=== PATIENT | female | born 1995 | race African-American/Black ===

== ENCOUNTER 2018-01-01 06:11 | Inpatient (IN) ==
[2018-01-01] MEDS ORDERED: D5 1/2 NS 1000 ML 1,000 ML IV ONE (06:36)
[2018-01-01] MEDS ORDERED: D5LR 1L W PITOCIN 10 UNITS/L 10 UNITS/1,000 ML BAG IV PRN (06:44)
[2018-01-01] MEDS ORDERED: NUBAIN INJ 200 MG VIAL MULTIDOSE IVP PRN (06:44)
[2018-01-01] MEDS ORDERED: AMPICILLIN VIAL 2 GRAM 2 G in NS 100 ML IV + SPIKE MINIBAG* 100 ML IV SCH (06:44)
[2018-01-01] MEDS ORDERED: REGLAN INJ 10 MG VIAL IVP PRN ×2 (06:44→18:03)
[2018-01-01] MEDS ORDERED: PHENERGAN INJ 25 MG IV PRN (06:44)
[2018-01-01] MEDS ORDERED: PITOCIN IVP ONE (06:44)
[2018-01-01] MEDS ORDERED: D5 1/2 NS 1000 ML 1,000 ML IV SCH (06:44)
[2018-01-01] MEDS ORDERED: MORPHINE SULFATE INJ 2 MG INJ IVP PRN (06:44)
--- NOTE | 2018-01-01 07:13 | DR.OB ---
OB Quick Note - Assessment/Plan Assessment/Plan: L&D 01/01/18 at 6:46am S-No complaint. O-Afebrile,VSS UPO=[id number] with good LTV, +accel, no decel. CTX=occasional, mild CVX=1-2cm/50%/-1/VTX AROM with clear fluid. IUPC and FSE placed. A-IUP at 38 6/7 weeks for induction A1DM Abn. Quad Screen Rh- asthma GERD anemia Morbid Obesity P-Begin pitocin induction F/U labs Anticipate
[2018-01-01 07:22] LABS: BASOPHILS # (AUTO) 0.1 X10^3/uL (0.0-0.1); BASOPHILS % (AUTO) 0.6 % (0.2-1.0); EOSINOPHILS # (AUTO) 0.2 x10^3/uL (0.0-0.2); EOSINOPHILS % (AUTO) 1.5 % (0.9-2.9); HEMATOCRIT 33.6 % (36.0-47.0); LYMPHOCYTES # (AUTO) 2.9 X10^3/uL (1.3-2.9); LYMPHOCYTES % (AUTO) 25.2 % (21.0-51.0); MEAN CORPUSCULAR HEMOGLOBIN 24.7 pg (27.0-34.0); MEAN CORPUSCULAR HGB CONC 32.6 g/dL (33.0-35.0); MEAN CORPUSCULAR VOLUME 75.6 fL (80.0-100.0); MEAN PLATELET VOLUME 9.3 fL (7.4-11.0); MONOCYTES # (AUTO) 0.8 x10^3/uL (0.3-0.8); MONOCYTES % (AUTO) 6.5 % (0.0-13.0); NEUTROPHILS # (AUTO) 7.6 x10^3/uL (2.2-4.8); NEUTROPHILS % (AUTO) 66.2 % (42.0-75.0); PLATELET COUNT 343 X10^3/uL (150.0-450.0); RED BLOOD COUNT 4.44 X10^6/uL (3.5-5.4); RED CELL DISTRIBUTION WIDTH 16.6 % (11.6-16.5); WHITE BLOOD COUNT 11.6 X10^3/uL (3.6-10.0)
[2018-01-01] MEDS ORDERED: PITOCIN ONE (07:22)
[2018-01-01] MEDS ORDERED: D5LR 1L W PITOCIN 10 UNITS/L 10 UNITS/1,000 ML BAG IV ONE (07:22)
[2018-01-01] MEDS ORDERED: LR 1000 ML IV 1,000 ML IV ONE ×3 (07:22→10:08)
[2018-01-01] MEDS ORDERED: D5 1/2 NS 1L W PITOCIN 20 UNITS/L 20 UNITS/1,000 ML BAG IV ONE (07:23)
[2018-01-01 07:24] LABS: BLOOD UREA NITROGEN 4 mg/dL (7-18); CALCIUM 9.1 mg/dL (8.5-10.1); CARBON DIOXIDE 20.7 mmol/L (21-32); CHLORIDE 102 mmol/L (98-107); COR NA(FOR HYPERGLY) 135 mmol/L (136-145); CREATININE 0.97 mg/dL (0.55-1.02); SODIUM 134 mmol/L (136-145); eGFR NON BLACK RACES > 60 (>60)
[2018-01-01 07:25] LABS: BILIRUBIN,URINE NEGATIVE (NEGATIVE); BLOOD/HEMOGLOBIN,URINE NEGATIVE (NEGATIVE); GLUCOSE, URINE NEGATIVE (NEGATIVE); KETONES,URINE NEGATIVE (NEGATIVE); LEUKOCYTE ESTERASE ,URINE 1+ (NEGATIVE); NITRITES,URINE NEGATIVE (NEGATIVE); PH,URINE 6.5 (5.0 - 8.0); PROTEIN,URINE 1+ (NEGATIVE); UROBILINOGEN,URINE NORMAL (NORMAL)
[2018-01-01 07:27] LABS: APPEARANCE,URINE CLEAR (CLEAR); COLOR,URINE YELLOW (YELLOW)
[2018-01-01 07:35] LABS: HYPOCHROMASIA SLIGHT; PLATELET MORPHOLOGY COMMENT NORMAL (NORMAL)
[2018-01-01 07:42] LABS: BACTERIA,URINE TRACE /HPF (NEGATIVE); MUCUS,URINE FEW /HPF (NEGATIVE); RBC,URINE 0-2 /HPF (NONE SEEN); SQUAMOUS EPITHELIAL CELL,UR RARE /HPF (NEGATIVE)
[2018-01-01 07:43] LABS: SPERM,URINE RARE /HPF (NEGATIVE)
[2018-01-01] MEDS ORDERED: FENTANYL INJ 100 mcg ONE (09:10)
[2018-01-01] MEDS ORDERED: ADRENALINE CHL INJ ONE (09:10)
[2018-01-01] MEDS ORDERED: NAROPIN EPIDURAL 0.2% + FENTANYL 90MCG 60 ML EPI ONE ×2 (09:10→13:54)
[2018-01-01] MEDS ORDERED: XYLOCAINE 1 % (PLAIN) ONE (09:10)
[2018-01-01] MEDS: NAROPIN EPIDURAL 0.2% 60 ML with FENTANYL INJ 100 mcg 90 MCG IVP SCH ×4 (09:40→14:18)
[2018-01-01] MEDS ORDERED: FENTANYL INJ 100 mcg EPI ONE (10:08)
[2018-01-01] MEDS ORDERED: AMPICILLIN VIAL 1 GRAM 1 G in NS 50 ML IV + SPIKE MINIBAG* 50 ML IV SCH (11:00)
[2018-01-01] MEDS ORDERED: VERSED ONE (11:14)
[2018-01-01] MEDS ORDERED: EPHEDRINE SULFATE INJ ONE (11:14)
--- NOTE | 2018-01-01 13:24 | DR.OB ---
OB Quick Note - Assessment/Plan Assessment/Plan: L&D 01/01/18 at 1:15pm Pitocin=20mu/min. S-No complaint. s/p epidural. O-Afebrile,VSS LZO=[id number] with good LTV, +accel, no decel. CTX=q 1 1/2 to 3 min., about 35-55mmHg CVX=3cm/75%/-1/VTX A-IUP at 38 4/7 weeks for induction A1DM Abnormal quad screen Rh- asthma GERD anemia morbid obesity P-Cont. pitocin induction Anticipate
[2018-01-01] MEDS ORDERED: ANCEF 1 GRAM IV PREMIX* 1 G/50 ML BAG IV ONE ×2 (15:39→16:31)
[2018-01-01] MEDS ORDERED: XYLOCAINE 2% and EPINEPHRINE 1:100,000 ONE (16:03)
--- NOTE | 2018-01-01 16:18 | DR.OB ---
OB Quick Note - Assessment/Plan Assessment/Plan: L&D 01/01/18 at 4:10pm Pitocin=20mu/min. S-No complaint. O-Afebrile,VSS FMI=758 with good LTV, +accel, no decel. CTX=q 1 1/2 to 3 min., about 35-55mmHg CVX=3cm/75%/-1 A-IUP at 38 4/7 weeks with failure to dilate (no CVX change in 4 hours). A1DM abn. quad screen Rh- asthma GERD anemia morbid obesity P-To C/S
[2018-01-01] MEDS ORDERED: DURAMORPH ONE (16:34)
[2018-01-01] MEDS: D5 1/2 NS 1L W PITOCIN 20 UNITS/L 20 UNITS/1,000 ML BAG IV ONE ×2 (16:55→17:41)
[2018-01-01] MEDS ORDERED: XYLOCAINE 2% and EPINEPHRINE 1:100,000 IJ SCH (18:00)
[2018-01-01] MEDS ORDERED: DURAMORPH EPI SCH (18:00)
[2018-01-01] MEDS ORDERED: ZOFRAN INJ 4 MG VIAL IVP PRN ×2 (18:03→18:18)
[2018-01-01] MEDS ORDERED: PHENERGAN INJ 25 MG IVP PRN (18:03)
[2018-01-01] MEDS ORDERED: BENADRYL INJ 50 MG VIAL IVP PRN ×2 (18:03→18:18)
[2018-01-01] MEDS ORDERED: DILAUDID INJ IVP PRN (18:03)
[2018-01-01] MEDS ORDERED: DILAUDID INJ ONE (18:15)
[2018-01-01] MEDS ORDERED: NARCAN INJ IVP PRN (18:18)
[2018-01-01] MEDS ORDERED: PERCOCET TAB 5/325 MG PO PRN (18:18)
[2018-01-01] MEDS ORDERED: HYPERRHO S/D (or RHOGAM) IM PRN (18:18)
[2018-01-01] MEDS ORDERED: MYLICON TAB 80 MG CHEW PO PRN (18:18)
[2018-01-01] MEDS ORDERED: D5 1/2 NS 1000 ML 1,000 ML with PITOCIN 20 UNITS IV SCH ×2 (18:18)
[2018-01-01] MEDS ORDERED: ADACEL or BOOSTRIX TDaP VACCINE IM ONE ×2 (18:18→20:31)
[2018-01-01] MEDS: TORADOL 30 MG VIAL IVP PRN (19:45)
[2018-01-02] MEDS: TORADOL 30 MG VIAL IVP PRN (02:30)
[2018-01-02 05:20] LABS: HEMATOCRIT 28.7 % (36.0-47.0); HEMOGLOBIN 9.3 g/dL (12.0-16.0)
[2018-01-02] MEDS: PRENATAL PLUS PO SCH (08:03)
[2018-01-02] MEDS: PROTONIX TAB 40 MG PO SCH (08:03)
[2018-01-02] MEDS: PERCOCET TAB 5/325 MG PO PRN ×3 (08:08→22:07)
[2018-01-02] MEDS: COLACE CAP 100 MG PO SCH ×2 (08:08→20:15)
[2018-01-02] MEDS: PROVENTIL NEB TX 0.083% 2.5MG/ 3ML NEB PRN ×2 (09:50→16:15)
[2018-01-02] MEDS ORDERED: MOTRIN TAB 800 MG PO ONE (11:48)
[2018-01-02] MEDS: MOTRIN TAB 800 MG PO PRN ×2 (12:10→20:15)
[2018-01-02] MEDS: BACTROBAN CREAM TOP SCH ×2 (14:27→22:05)
[2018-01-03] MEDS: MOTRIN TAB 800 MG PO PRN ×2 (04:15→11:49)
[2018-01-03] MEDS: PROVENTIL NEB TX 0.083% 2.5MG/ 3ML NEB PRN ×2 (04:45→09:50)
[2018-01-03] MEDS: BACTROBAN CREAM TOP SCH ×2 (05:46→10:21)
[2018-01-03] MEDS: PERCOCET TAB 5/325 MG PO PRN (06:33)
[2018-01-03 08:03] VITALS: BP 116/74
[2018-01-03] MEDS: COLACE CAP 100 MG PO SCH (09:20)
[2018-01-03] MEDS: PRENATAL PLUS PO SCH (09:20)
[2018-01-03] MEDS: PROTONIX TAB 40 MG PO SCH (09:20)
== END 2018-01-03 12:20 | disposition home or self-care (01) | DRG 788 ==
LOC: LD 06:11 → MED/SURG 17:35
PROVIDERS: ADMIT Specialist; ATTEND Specialist
DX: O62.0 Primary inadequate contractions; O99.824 Streptococcus B carrier state complicating childbirth; O99.89 Other specified diseases and conditions complicating pregnancy, childbirth and the puerperium; Z3A.38 38 weeks gestation of pregnancy; O09.33 Supervision of pregnancy with insufficient antenatal care, third trimester; Z37.0 Single live birth; Z01.812 Encounter for preprocedural laboratory examination; O99.013 Anemia complicating pregnancy, third trimester; E66.01 Morbid (severe) obesity due to excess calories; Z23 Encounter for immunization; O24.410 Gestational diabetes mellitus in pregnancy, diet controlled; D50.8 Other iron deficiency anemias; O99.613 Diseases of the digestive system complicating pregnancy, third trimester
CPT/HCPCS: 36415; 80048; 80307; 81001; 84112; 85014; 85018; 85025; 85461; 86592; 86850; 86900; 86901; 90715; 94640; 99284; A4216; A4222; S0197; G0434; J0171; J0290; J0690; J1170; J1885; J2001; J2250; J2405; J2590; J3010; J3490; J7050; J7120; J7613; S5010